=== PATIENT | female | born 1995 | race Caucasian/White ===

== ENCOUNTER 2019-06-08 22:12 | Inpatient (IN) | payer BC ==
[~2019-06-08] VITALS: Ht 157.5 cm; Wt 85.3 kg
[2019-06-08] MEDS ORDERED: DINOPROSTONE 10 MG SUPP VG ONE (23:15)
[2019-06-08] MEDS ORDERED: TERBUTALINE SULFATE 1 MG/ML VIAL SUBCUT ONE (23:15)
[2019-06-08] MEDS ORDERED: OXYTOCIN/0.9 % SODIUM CHLORIDE 1,000 ML IV SCH (23:15)
[2019-06-08] MEDS ORDERED: MORPHINE 4 MG/ML INJ. SYRINGE IVP PRN (23:15)
[2019-06-08] MEDS ORDERED: LR 1,000 ML IV SCH (23:15)
[2019-06-08 23:27] VITALS: BP_SYST 113
[2019-06-08 23:49] LABS: BASOPHILS % (AUTO) 0.3 % (0.0-2.0); EOSINOPHILS # (AUTO) 0.1 K/uL (0.0-0.4); EOSINOPHILS % (AUTO) 0.9 % (0.0-4.0); HEMATOCRIT 32.5 % (36-48); HEMOGLOBIN 10.4 g/dL (12.0-16.0); LYMPHOCYTES # (AUTO) 1.8 K/uL (1.0-5.5); LYMPHOCYTES % (AUTO) 23.2 % (20.5-51.5); MEAN CORPUSCULAR HEMOGLOBIN 26 pg (27-31); MEAN CORPUSCULAR HGB CONC 32 % (32-36); MEAN CORPUSCULAR VOLUME 82 fL (79.0-98.0); MONOCYTES # (AUTO) 0.7 K/uL (0.0-1.0); NEUTROPHILS # (AUTO) 5.3 K/uL (1.8-7.7); NEUTROPHILS % (AUTO) 66.6 % (40.0-70.0); PLATELET COUNT (AUTO) 217 K/uL (130-430); RED BLOOD CELL COUNT(AUTO) 3.95 MIL/uL (4.2-6.2); RED CELL DISTRIBUTION WIDTH 16.8 % (9.0-15.0); WHITE BLOOD COUNT (AUTO) 7.9 K/uL (4.8-10.8)
[2019-06-09] MEDS ORDERED: ROPIVACAINE HCL/PF 0.2% 200 ML ONE (02:16)
[2019-06-09] MEDS ORDERED: fentaNYL CITRATE/PF 100 MCG/2 ML AMP ONE (02:16)
[2019-06-09] MEDS ORDERED: LR 500 ML IV ONE (03:01)
[2019-06-09] MEDS ORDERED: FENT2mCg/mL-ROPIVA0.2%/NS EPID 200 ML EP SCH (03:15)
[2019-06-09] MEDS ORDERED: DERMOPLAST SPRAY TP PRN (16:15)
[2019-06-09] MEDS ORDERED: WITCH HAZEL LEAF 1 MED.PAD MED.PAD TP PRN (16:15)
[2019-06-09] MEDS ORDERED: OXYTOCIN/0.9 % SODIUM CHLORIDE 1,000 ML IV ONE (16:15)
[2019-06-09] MEDS ORDERED: METHYLERGONOVINE MALEATE 0.2 MG TABLET PO PRN (16:15)
[2019-06-09] MEDS ORDERED: DIPH-TET-PERTUS Vaccine 0.5 ML VIAL (ADACEL) I.M. PRN (16:15)
[2019-06-09] MEDS: SENNOSIDES/DOCUSATE SODIUM 1 TAB TABLET(SENOKOT-S) PO PRN (18:16)
[2019-06-09] MEDS: DOCUSATE SODIUM 100 MG CAPSULE PO PRN (18:16)
[2019-06-09] MEDS: IBUPROFEN 600 MG TABLET PO SCH (18:17)
[2019-06-09] MEDS ORDERED: TEMAZEPAM 15 MG CAPSULE PO PRN (21:00)
[2019-06-10] MEDS: IBUPROFEN 600 MG TABLET PO SCH ×3 (00:21→12:56)
[2019-06-10 05:48] LABS: BASOPHILS # (AUTO) 0.1 K/uL (0.0-0.2); BASOPHILS % (AUTO) 0.5 % (0.0-2.0); EOSINOPHILS # (AUTO) 0.1 K/uL (0.0-0.4); HEMOGLOBIN 8.3 g/dL (12.0-16.0); LYMPHOCYTES # (AUTO) 2.5 K/uL (1.0-5.5); MEAN CORPUSCULAR HEMOGLOBIN 26 pg (27-31); MEAN CORPUSCULAR HGB CONC 32 % (32-36); MEAN CORPUSCULAR VOLUME 83 fL (79.0-98.0); MONOCYTES # (AUTO) 0.7 K/uL (0.0-1.0); MONOCYTES % (AUTO) 6.3 % (1.7-9.3); NEUTROPHILS # (AUTO) 7.2 K/uL (1.8-7.7); NEUTROPHILS % (AUTO) 68.2 % (40.0-70.0); PLATELET COUNT (AUTO) 159 K/uL (130-430); RED BLOOD CELL COUNT(AUTO) 3.14 MIL/uL (4.2-6.2); RED CELL DISTRIBUTION WIDTH 16.4 % (9.0-15.0); WHITE BLOOD COUNT (AUTO) 10.5 K/uL (4.8-10.8)
[2019-06-10] MEDS ORDERED: FLU VACC QS2019-20 36MOS UP/PF 60 MCG/0.5 ML SYRINGE I.M. PRN (09:00)
[2019-06-10] MEDS: DOCUSATE SODIUM 100 MG CAPSULE PO PRN (12:56)
[2019-06-10] MEDS: SENNOSIDES/DOCUSATE SODIUM 1 TAB TABLET(SENOKOT-S) PO PRN (12:56)
== END 2019-06-10 14:43 | disposition home or self-care (01) | DRG 807 ==
LOC: SPU 22:12
PROVIDERS: ADMIT Obstetrics & Gynecology; ATTEND Obstetrics & Gynecology
PROC: 10E0XZZ Delivery of Products of Conception, External Approach (ICD-10-PCS; principal; 2019-06-09)
PROC: 0KQM0ZZ Repair Perineum Muscle, Open Approach (ICD-10-PCS; 2019-06-09)
PROC: 3E0R3BZ Introduction of Anesthetic Agent into Spinal Canal, Percutaneous Approach (ICD-10-PCS; 2019-06-09)
PROC: 00HU33Z Insertion of Infusion Device into Spinal Canal, Percutaneous Approach (ICD-10-PCS; 2019-06-09)
DX: O45.93 Premature separation of placenta, unspecified, third trimester (principal); Z37.0 Single live birth; O70.1 Second degree perineal laceration during delivery; Z3A.39 39 weeks gestation of pregnancy
CPT/HCPCS: 36415; 81002-TC; 85025; 86592; 86886; 86900; 86901; 90715; 94760; J2590; J3010

== ENCOUNTER 2019-07-05 15:48 | Emergency (ER) | payer BC ==
[~2019-07-05] VITALS: Ht 157.5 cm; Wt 81.6 kg
[2019-07-05 16:00] VITALS: BP_SYST 123
--- NOTE | 2019-07-05 16:00 | NUR ---
PATIENT TO ER #[id number]
--- NOTE | 2019-07-05 16:15 | NUR ---
DR REEDER AT BEDSIDE TO ASSESS. PT CALM, ALERT, COOPERATIVE
--- NOTE | 2019-07-05 16:23 | NUR ---
BACK FROM X-RAY
--- NOTE | 2019-07-05 16:24 | NUR ---
ALERT, CALM, RESP UNLABORED, SKIN WARM AND DRY. COMMUNICATES CLEARLY IN FULL COMPLETE SENTENCES. DENIES CP / SOB/ FEVERS. \PAIN AND SWELLING LT ANKLE S/P MECANICAL FALL. DENIES HEAD INJURY OR LOC.
[2019-07-05] MEDS ORDERED: KETOROLAC TROMETHAMINE 60 MG/2 ML VIAL IM ONE (16:30)
[2019-07-05 16:43] VITALS: BP_SYST 103
--- NOTE | 2019-07-05 16:50 | NUR ---
MEDICATED FOR PAIN, RESTING EASY. NAD
--- NOTE | 2019-07-05 17:00 | NUR ---
Patient given written and verbal discharge instructions and verbalizes understanding. ER MD discussed with patient the results and treatment provided. Patient in stable condition. ID arm band removed. Rx of given MOTRIN AND NORCO. Patient educated on pain management and to follow up with PMD. Pain Scale 2/10 . Opportunity for questions provided and answered. Medication side effect fact sheet provided.
== END 2019-07-05 16:43 | disposition home or self-care (01) ==
LOC: SED 15:48
DX: S90.32XA Contusion of left foot, initial encounter (principal); W18.39XA Other fall on same level, initial encounter; Y93.89 Activity, other specified; Y92.89 Other specified places as the place of occurrence of the external cause; Y99.8 Other external cause status
CPT/HCPCS: 73630; 81025; 96372; 99283; J1885

== ENCOUNTER 2021-05-20 06:00 | Day surgery (SDC) | payer MEDICAID, SELFPAY ==
[~2021-05-20] VITALS: Ht 157.5 cm; Wt 75.3 kg
[2021-05-20 06:45] LABS: HCG,QUAL RESULT NEGATIVE (NEGATIVE)
[2021-05-20] MEDS ORDERED: SIMETHICONE 40 MG/0.6 ML ML ONE (07:29)
[2021-05-20] MEDS ORDERED: fentaNYL CITRATE/PF 100 MCG/2 ML AMP ONE (07:29)
[2021-05-20] MEDS ORDERED: MIDAZOLAM HCL 5 MG/5 ML VIAL ONE (07:30)
[2021-05-20] MEDS ORDERED: MEPERIDINE 100 MG INJ. 100 MG/ML VIAL ONE (08:01)
[2021-05-20 14:50] VITALS: BP_SYST 122
== END 2021-05-20 09:40 | disposition home or self-care (01) ==
LOC: SDS 06:00 → SMU 06:00 → SDS 09:40
PROVIDERS: ATTEND Internal Medicine
DX: R19.4 Change in bowel habit (principal); K63.5 Polyp of colon; K64.8 Other hemorrhoids; R10.32 Left lower quadrant pain; Z79.899 Other long term (current) drug therapy; Z20.822 Contact with and (suspected) exposure to COVID-19
CPT/HCPCS: 36415; 45380; 84703; 87426; 88305; 99152; G0378; J2175; J2250; U0003; J3010